=== PATIENT | female | born 1955 | race Caucasian/White ===

== ENCOUNTER → 2020-11-27 13:27 | Outpatient (CLI) | payer BC, SELFPAY ==
[2020-11-27 14:02] LABS: COVID19 -Nasal RAPID Negative (Negative)
== END ==
PROVIDERS: PCP Nurse Practitioner Family; Visit Provider Specialist
DX: Z01.812 Encounter for preprocedural laboratory examination (principal); Z20.822 Contact with and (suspected) exposure to COVID-19
CPT/HCPCS: 87635

== ENCOUNTER 2020-11-28 09:51 | Day surgery (SDC) | payer BC, SELFPAY ==
[2020-11-28] VITALS (10 sets, daily range): BP systolic 119–141; BP diastolic 50–71; PULSE 47–59; RESP 8–18; TEMP 36.1–36.7; O2SAT 82–100; BMI 30.4
[2020-11-28] MEDS: LACTATED RINGERS 1,000 ML 100 ML IV (10:20)
--- NOTE | 2020-11-28 11:03 | PM.PREOP ---
Pre-operative Note COVID-19 COVID-19 status: Negative Result date/Date tested (Pos, Neg/Pending): 11/27/20 Interval Note History & Physical reviewed/Exam performed by Physician: Yes Changes to H&P: No
[2020-11-28] MEDS: CEFAZOLIN 1 GM VIAL 2 GM IV (11:34)
[2020-11-28] MEDS: BUPIVACAINE 0.5% W/ EPI (PF) 30 ML VIAL INJ (11:48)
--- NOTE | 2020-11-28 11:51 | SUR.OPER ---
Lithotomy on padded OR bed, head on pillow, arms secured on padded arm boards at <90 degrees abduction. Legs secured in padded yellow fins stirrups.
--- NOTE | 2020-11-28 13:00 | PM.OP.1 ---
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 A band of tissue between the anterior and posterior wall of the vagina measuring approximately 1/2 cm in diameter and 4 cm long. Cystocele greater than rectocele. Closure Type: primary Specimen(s): none sent Estimated Blood Loss (mL): 20 Blood products transfused: none Procedure in detail: Patient was brought to the operating room where she was in a supine position in low [facility] stirps and underwent a general anesthetic. She was prepped and draped in the usual sterile fashion. Her bladder was drained. 2 g of Ancef were in prior to beginning of the case. Warming was in place. Pulsatile stockings were in place. Area on anterior and posterior wall of the prolapse were marked with a marking pen and injected with a dilute solution of half percent Marcaine with epinephrine. The band of tissue between the anterior and posterior vaginal wall was incised. An area of healing vaginal ulcer was excised. The skin was incised with a scalpel and undermined with and removed removed with Metzenbaum scissors. This cystocele caliber was reduced with a pursestring suture of 2 0 Vicryl suture. A plicating suture was performed at the bladder neck with 2 0 Vicryl suture. 2-0 Vicryl suture was used in an interrupted fashion to close anterior to posterior on the sides creating a tunnel from the top of the vaginal tissue to the external area. The vaginal incision was closed from anterior to posterior. A wedge-shaped tissue was taken out of the posterior fourchette with a scalpel. The perineal body was built up with interrupted sutures of 0 Vicryl suture followed by 2 0 Vicryl suture. Skin was closed with 2 0 Vicryl suture. Counts of instruments and sponges were correct. Patient went to recovery room in good condition. Complications: none Post-operative Condition: stable Disposition: same day surgery Plan for aftercare: Home after recovery from anesthetic and confirmed no postvoid residual.
--- NOTE | 2020-11-28 14:27 | SUR.PHASEII ---
Addendum entered by David Downing R.N. 11/28/20 15:19: patient voided 300cc's pink/red tinged urine and also incont of heavy amt of urine to peripad. pvr 110cc's. dr. corbett notified. okay to dc patient home. Original Note: PVR: PATIENT ABLE TO VOID 200CC'S, WITH PVR MAX OF 223CC'S. DR. CORBETT NOTIFIED. KEEP PATIENT UNTIL ABLE TO VOID AGAIN, THEN PERFORM PVR. IF LESS THAN 100CC'S PATIENT MAY DC HOME. IF >[address] CORBETT. PATIENT UPDATED ON POC.
== END 2020-11-28 15:35 | disposition home or self-care (01) ==
PROVIDERS: PCP Nurse Practitioner Family; Referring Provider Specialist; Visit Provider Specialist
PROC: (CPT 57120; principal; 2020-11-28 11:15)
DX: N99.3 Prolapse of vaginal vault after hysterectomy (principal); E78.5 Hyperlipidemia, unspecified; I10 Essential (primary) hypertension
CPT/HCPCS: 57120; J0690; J1100; J1885; J2405; J2704; J3010